=== PATIENT | female | born 1990 | race Caucasian/White ===

== ENCOUNTER 2018-12-13 14:15 | Emergency (ER) | payer OTHER ==
[~2018-12-13] VITALS: Ht 170.2 cm; Wt 84.4 kg
[2018-12-13] MEDS ORDERED: PROVIDA DHA CA1 EACH (14:41)
== END 2018-12-13 22:13 | disposition home or self-care (01) ==
LOC: ER 14:15
DX: O26.892 Other specified pregnancy related conditions, second trimester (principal); R10.2 Pelvic and perineal pain; Z34.02 Encounter for supervision of normal first pregnancy, second trimester

== ENCOUNTER 2019-04-28 14:45 | Inpatient (IN) | payer OTHER ==
[~2019-04-28] VITALS: Ht 170.2 cm; Wt 88.9 kg
[~2019-04-28 14:45] MED LIST: PROVIDA DHA CA1 EACH
== END 2019-05-10 11:45 | disposition home or self-care (01) | DRG 807 ==
LOC: O/R 14:45 → OB/GYN 05-08 05:04 → LDR 05-08 05:04 → OB/GYN 05-08 15:35
PROVIDERS: ADMIT Obstetrics & Gynecology
PROC: 10E0XZZ Delivery of Products of Conception, External Approach (ICD-10-PCS; principal; 2019-05-08)
PROC: 0KQM0ZZ Repair Perineum Muscle, Open Approach (ICD-10-PCS; 2019-05-08)
PROC: 4A1HXCZ Monitoring of Products of Conception, Cardiac Rate, External Approach (ICD-10-PCS; 2019-05-08)
PROC: 3E033VJ Introduction of Other Hormone into Peripheral Vein, Percutaneous Approach (ICD-10-PCS; 2019-05-08)
DX: O70.1 Second degree perineal laceration during delivery (principal); Z37.0 Single live birth; Z3A.39 39 weeks gestation of pregnancy

== ENCOUNTER 2021-05-07 16:06 | Inpatient (IN) | payer OTHER ==
[~2021-05-07] VITALS: Ht 170.2 cm; Wt 103.0 kg
[2021-05-07] MEDS ORDERED: PRENATAL CAPLE1 EAC1 PO (16:26)
[2021-05-07] MEDS ORDERED: ASA81 MG PO (16:26)
== END 2021-05-08 09:35 | disposition home or self-care (01) | DRG 833 ==
LOC: LDR 16:06
PROVIDERS: ADMIT Obstetrics & Gynecology; ATTEND Obstetrics & Gynecology
PROC: BY4FZZZ Ultrasonography of Third Trimester, Single Fetus (ICD-10-PCS; principal; 2021-05-07)
DX: O47.03 False labor before 37 completed weeks of gestation, third trimester (principal); Z3A.33 33 weeks gestation of pregnancy

== ENCOUNTER 2021-05-29 14:41 | Inpatient (IN) | payer OTHER ==
[~2021-05-29] VITALS: Ht 170.2 cm; Wt 104.8 kg
[~2021-05-29 14:41] MED LIST changes: +ASA81 MG PO; +PRENATAL CAPLE1 EAC1 PO
[2021-05-29] MEDS ORDERED: CHILDREN'S ASPI81 MG (15:06)
[2021-05-29] MEDS ORDERED: PRENATAL TABLE1 EAC1 PO (15:06)
== END 2021-06-01 13:37 | disposition home or self-care (01) | DRG 786 ==
LOC: LDR 14:41 → OB/GYN 14:41
PROVIDERS: ADMIT Obstetrics & Gynecology; ATTEND Obstetrics & Gynecology
PROC: 4A1HXFZ Monitoring of Products of Conception, Cardiac Rhythm, External Approach (ICD-10-PCS; 2021-05-29)
PROC: 10D00Z1 Extraction of Products of Conception, Low, Open Approach (ICD-10-PCS; principal; 2021-05-29 18:00)
DX: O42.013 Preterm premature rupture of membranes, onset of labor within 24 hours of rupture, third trimester (principal); O60.14X0 Preterm labor third trimester with preterm delivery third trimester, not applicable or unspecified; O76 Abnormality in fetal heart rate and rhythm complicating labor and delivery; Z3A.36 36 weeks gestation of pregnancy; Z37.0 Single live birth

== ENCOUNTER 2023-08-30 05:30 | Day surgery (SDC) | payer OTHER ==
[2023-08-26 11:27] LABS: HEMATOCRIT 39.5 % (36.0-45.00); HEMOGLOBIN 13.3 g/dL (12.0-15.00); MEAN CELL VOLUME 83.5 fL (80.00-100.00); MEAN CORPUSCULAR HEMOGLOBIN 28.1 pg (27.00-32.0); MEAN CORPUSCULAR HGB CONC 33.7 g/dl (32.0-36.0); PLATELET COUNT 259 K/uL (150-450); RED BLOOD COUNT 4.73 M/uL (4.00-6.00); RED CELL DISTRIBUTION WIDTH 13.8 % (11.5-14.5)
[2023-08-26 11:30] LABS: PH,URINE 5.5 (5.0-8.0); URINE APPEARANCE Clear; URINE BILIRRUBIN Negative (NEGATIVE); URINE BLOOD Moderate; URINE COLOR Dark Yellow; URINE GLUCOSE Negative (NEGATIVE); URINE LEUKOCYTE Trace; URINE NITRATE Negative; URINE PROTEIN Trace (NEGATIVE)
[2023-08-26 11:31] LABS: URINE BACTERIA 197.8 uL (0.0-1933); URINE EPITHELIAL CELLS 12.8 uL (0.0-38.8)
[2023-08-26 11:48] LABS: INR 1.01; PARTIAL THROMBOPLASTIN TIME 29.9 SECONDS (22.0-34.0); PROTHROMBIN TIME 10.6 SECONDS (9.0-11.5)
[2023-08-26 12:14] LABS: ALBUMIN 4.2 gm/dL (3.4-5.0); ALKALINE PHOSPHATASE 52 U/L (50-136); ALT/SGPT 47 U/L (12-78); ANION GAP 7 (10.0-20.0); AST/SGOT 21 U/L (15-37); BILIRUBIN TOTAL 0.36 mg/dL (0.3-1.2); BLOOD UREA NITROGEN 14 mg/dL (7-18); BUN CREA RATIO 18 (7.0-25.0); CALCIUM 9.6 mg/dL (8.5-10.1); CARBON DIOXIDE 29 mEq/L (21-32); CHLORIDE 107 mmol/L (98-107); CREATININE SERUM 0.79 mg/dL (0.55-1.02); GFR 82.82; GLOBULINA 3.5 G/DL (2.4-3.5); GLUCOSE FASTING 99 mg/dL (65-100); OSMOLALITY SERUM 278 MOSM/KG (275-295); POTASSIUM 4.26 mEq/L (3.5-5.1); SODIUM 139 mmol/L (136-145); TOTAL PROTEIN 7.7 gm/dL (6.4-8.2)
[2023-08-26 12:18] LABS: HCG QUANTITATIVE < 1 mUI/mL (1-3)
[~2023-08-30 05:30] MED LIST changes: +CHILDREN'S ASPI81 MG; +PRENATAL TABLE1 EAC1 PO; +QSYMIA 3.75 MG1 EACH PO; +TOPROL XL25 M1 PO
== END 2023-08-30 18:45 | disposition home or self-care (01) ==
LOC: CIR.AMB 05:30
PROVIDERS: ATTEND Obstetrics & Gynecology
DX: N87.1 Moderate cervical dysplasia (principal); I10 Essential (primary) hypertension; E03.9 Hypothyroidism, unspecified; Z20.822 Contact with and (suspected) exposure to COVID-19